=== PATIENT | female | born 1955 | race Caucasian/White ===

== ENCOUNTER → 2017-10-05 | Outpatient (CLI) | payer OTHER ==
[~2017-10-05] MED LIST: AMIT-106 PO; ASC500 PO; ASP81 PO; AZEL205. INH; BIMA2.5D5 OP; BIMA2.5D5 OU; CALC-845 PO; CALC-852 PO; CODE120S4 PO; DES50 PO; DOCU-416 PO; EST3 PO; EST42T PV; FIBE1TAB5 PO; FLAX100042 PO; GLUC-198 PO; HCTZ25 PO; HYDR-2966 PO; HYDR-4309 PO; HYPR10GE4 OP; IBAN150T6 PO; LEVO-85 PO; LEVO500T PO; LIS10 PO; LISI-362 PO; LORA-802 PO; LUTE20CA11 PO; MELO-150 PO; MULT-19 PO; OLO2ODPT OU; PAN20 PO; PAN40 PO; PANT40TA65 PO; RISE5TAB PO; SULF-198 PO; Z PACK; [UNRECOGNIZED DRUG - CODE] OP; [UNRECOGNIZED DRUG - CODE] PO; [UNRECOGNIZED DRUG - CODE] PO; [UNRECOGNIZED DRUG - CODE] PO; [UNRECOGNIZED DRUG - OTHER]
--- NOTE | 2017-10-06 09:40 | RADIOLOGY IMAGING REPORT ---
FACILITY: [facility] - [place] PATIENT NAME: YESSICA MATHEWS : [id number] MR: [id number] V: [id number] EXAM DATE: [id number] ORDERING PHYSICIAN: CRISTOPHER MATHEWS TECHNOLOGIST: Elva Carcamo PROCEDURE:BILATERAL SCREENING MAMMOGRAPHY WITH TOMOGRAPHY & COMPUTER ASSISTED DIAGNOSIS COMPARISON:Compared to priors. INDICATIONS:SCREENING FINDINGS: Scattered fibroglandular densities are present in both breasts. No masses or suspicious calcifications. DIAGNOSTIC CATEGORY 1--NEGATIVE. RECOMMENDATIONS: ROUTINE MAMMOGRAM AND CLINICAL EVALUATION. IMPRESSION: BIRADS 1: Negative. Recommendations: bilateral screening mammography in 1 year. Dictated by: Jeancarlos Morales M.D. on 10/05/2017 at 14:54 Transcribed by: FIX on 10/05/2017 at 15:07 Approved by: Rich Blackburn M.D. on 10/06/2017 at 9:39 [facility]
== END ==
LOC: MAMO 01:21
PROVIDERS: ATTEND Obstetrics & Gynecology
DX: Z12.31 Encounter for screening mammogram for malignant neoplasm of breast (principal)
CPT/HCPCS: 77063; 77067

== ENCOUNTER → 2018-11-06 | Outpatient (CLI) | payer MEDICARE, OTHER ==
[~2018-11-06] MED LIST changes: +ASPI-760 PO; -HYDR-4309 PO; +HYDR-653 PO; +OLOOD OP
--- NOTE | 2018-11-08 16:59 | RADIOLOGY IMAGING REPORT ---
FACILITY: [facility] - [place] PATIENT NAME: YESSICA MATHEWS : [id number] MR: [id number] V: [id number] EXAM DATE: ORDERING PHYSICIAN: CRISTOPHER MATHEWS TECHNOLOGIST: Kimberly Mathews PROCEDURE: BILATERAL DIGITAL SCREENING MAMMOGRAM WITH CAD ASSISTED INTERPRETATION & 3D TOMOSYNTHESIS. REASON FOR STUDY: Screening. FAMILY HISTORY OF BREAST CANCER: Mother. Family history of ovarian cancer: Maternal Aunt. BREAST PROCEDURES/TREATMENTS: None. COMPARISON: 10/05/17, 10/04/16, 09/25/15, 09/18/14, 09/06/13, 09/03/13. VIEWS OBTAINED: 2D & 3D full field CC & MLO. BREAST DENSITY: The breasts are almost entirely fatty. MAMMOGRAM FINDINGS: The parenchymal pattern has remained stable allowing for difference in mammographic technique & patient positioning. IMPRESSION: BIRADS 1: Negative. DIAGNOSTIC CATEGORY 1--NEGATIVE. RECOMMENDATIONS: ROUTINE MAMMOGRAM AND CLINICAL EVALUATION. Dictated by: Ayesha Alva M.D. on 11/07/2018 at 16:27 Transcribed by: KELLY on 11/08/2018 at 8:05 Approved by: Ayesha Alva M.D. on 11/08/2018 at 16:57 [facility]
== END ==
LOC: MAMO 00:30
PROVIDERS: ATTEND Obstetrics & Gynecology
DX: Z12.31 Encounter for screening mammogram for malignant neoplasm of breast (principal)
CPT/HCPCS: 77063; 77067